=== PATIENT | male | born 1985 | race African-American/Black ===

== ENCOUNTER 2017-06-04 12:21 | Emergency (ER) | payer MEDICAID ==
[2017-06-04 14:45] VITALS: BP 129/71
== END 2017-06-04 14:45 | disposition home or self-care (01) ==
LOC: ED 12:21
DX: S16.1XXA Strain of muscle, fascia and tendon at neck level, initial encounter (principal); S39.012A Strain of muscle, fascia and tendon of lower back, initial encounter; R03.0 Elevated blood-pressure reading, without diagnosis of hypertension; V49.9XXA Car occupant (driver) (passenger) injured in unspecified traffic accident, initial encounter; Y93.89 Activity, other specified; Y99.8 Other external cause status; Y92.411 Interstate highway as the place of occurrence of the external cause
CPT/HCPCS: 72072; J1885; Q0162